=== PATIENT | male | born 1995 | race Caucasian/White ===

== ENCOUNTER 2018-09-09 19:42 | Emergency (ER) | payer BC ==
[2018-09-09] MEDS ORDERED: Sodium Chloride 0.9% 10 ML Syringe FLUSH PRN (20:13)
[2018-09-09] MEDS ORDERED: Famotidine 20 MG/2 ML SDV IVPUSH ONE (20:14)
[2018-09-09] MEDS ORDERED: Dexamethasone 4 MG/ML SDV IVPUSH ONE (20:14)
[2018-09-09] MEDS ORDERED: diphenhydrAMINE 50 MG/ML SDV IVPUSH ONE (20:14)
[2018-09-09] MEDS ORDERED: Lidocaine 1% 10 ML MDV INJECT ONE (20:23)
--- NOTE | 2018-09-09 21:23 | EDM.PDOC ---
ED HPI GENERAL MEDICAL PROBLEM - General Chief Complaint: Laceration Stated Complaint: CUT LEFT HAND POINTER FINGER ON A KNIFE Time Seen by Provider: 09/09/18 19:49 Source of Information: Reports: Patient History Limitations: Reports: No Limitations - History of Present Illness INITIAL COMMENTS - FREE TEXT/NARRATIVE: 23-year-old male presents to worsen chief complaints of left index finger laceration. Patient reports he was using a knife to cut something the knife slipped and he cut his finger. Patient reports his immunizations are up-to- date. Patient reports he is right-handed. Patient states that he is from out of town and is here working. He does not have a PCP. Onset: Today, Sudden Onset Date: 09/09/18 Onset Time: 19:00 Duration: Minutes: Location: Reports: Upper Extremity, Left Quality: Reports: Ache Severity: Mild Improves with: Reports: None Worsens with: Reports: None Associated Symptoms: Reports: No Other Symptoms Left Finger-Index Pain Score (Numeric/FACES): 3 - Related Data Allergies Allergy/AdvReac Type Severity Reaction Status Date / Time No Known Allergies Allergy Verified 09/09/18 19:52 Home Meds: Home Meds . [No Known Home Meds] 09/09/18 [History] Past Medical History - Past Health History Medical/Surgical History: Denies Medical/Surgical History Social & Family History - Tobacco Use Smoking Status *Q: Current Every Day Smoker Years of Tobacco use: 6 Packs/Tins Daily: 0.5 - Caffeine Use Caffeine Use: Reports: Energy Drinks - Recreational Drug Use Recreational Drug Use: No ED ROS GENERAL - Review of Systems Review Of Systems: ROS reveals no pertinent complaints other than HPI. Musculoskeletal: Reports: Hand Pain Skin: Reports: Other (Left index finger laceration) ED EXAM, SKIN/RASH Exam: See Below Exam Limited By: No Limitations General Appearance: Alert, WD/WN, No Apparent Distress Peripheral Pulses: 4+: Radial (L), Radial (R) Extremities: Normal Inspection, Normal Range of Motion, Non-Tender, No Pedal Edema, Normal Capillary Refill Neurological: Alert, Oriented, Normal Cognition, Normal Gait, Normal Reflexes, No Motor/Sensory Deficits Skin: Warm, Dry, Intact, Normal Color, Other (Left index dorsal finger laceration 2 cm, neurovascularly intact.) ED SKIN PROCEDURES - Laceration/Wound Repair Left Mid-Anterior Digit - 2nd (Index) Appearance: Superficial, Clean Distal NVT: Neuro & Vascular Intact Local Anesthesia - Lidocaine (Xylocaine): 1% Plain Local Anesthetic Volume: 1cc Skin Prep: Chlorhexidine (Hibiciens) Suture Size: other (5.0) # of Sutures: 2 Suture Type: Prolene Sterile Dressing Applied: Nurse Tetanus Status Addressed: Yes Complications: No Course - Vital Signs Last Recorded V/S: Last Vital Signs Temp 97.5 F 09/09/18 19:49 Pulse 89 09/09/18 19:49 Resp 18 09/09/18 19:49 BP 130/77 09/09/18 19:49 Pulse Ox 98 09/09/18 19:49 - Orders/Labs/Meds Meds: Medications Discontinued Medications Generic Name Dose Route Start Last Admin Trade Name Freq PRN Reason Stop Dose Admin Dexamethasone 4 mg 09/09/18 20:14 Dexamethasone IVPUSH 09/09/18 20:15 ONETIME ONE Diphenhydramine HCl 25 mg 09/09/18 20:14 Benadryl IVPUSH 09/09/18 20:15 ONETIME ONE Famotidine 20 mg 09/09/18 20:14 Pepcid IVPUSH 09/09/18 20:15 ONETIME ONE Lidocaine HCl 10 ml 09/09/18 20:23 09/09/18 20:47 Xylocaine 1% INJECT 09/09/18 20:24 10 ml ONETIME ONE Administration Sodium Chloride 10 ml 09/09/18 20:13 Saline Flush FLUSH ASDIRECTED PRN Keep Vein Open - Re-Assessments/Exams Free Text/Narrative Re-Assessment/Exam: 09/09/18 21:21 Finger was examined and cleansed with 10 mL received laceration. His condition improved. I will discharge home with instructions for laceration repair. Departure - Departure Time of Disposition: 21:21 Disposition: Home, Self-Care 01 Clinical Impression: Finger laceration Qualifiers: Encounter type: initial encounter Finger: index finger Damage to nail status: without damage Foreign body presence: without foreign body Laterality: left Qualified Code(s): S61.211A - Laceration without foreign body of left index finger without damage to nail, initial encounter - Discharge Information Instructions: Laceration Care, Adult Referrals: PCP,None [Primary Care Provider] - Additional Instructions: Given diagnoses a finger laceration Monitor for signs of infection which include but are not limited to fever, redness and warmth at the site., Purulent drainage. Follow up with her PCP in 7-10 days to have sutures removed. Return to the emergency room for any new or acute worsening symptoms.
== END 2018-09-09 21:20 | disposition home or self-care (01) ==
LOC: JD.ED 19:42
DX: S61.211A Laceration without foreign body of left index finger without damage to nail, initial encounter (principal); F17.210 Nicotine dependence, cigarettes, uncomplicated; W26.0XXA Contact with knife, initial encounter
CPT/HCPCS: 12001; 99282; J2001; 99283